=== PATIENT | female | born 1945 | race Caucasian/White ===

== ENCOUNTER 2019-10-24 09:30 | Emergency (ER) | payer OTHER, MEDICAID ==
[~2019-10-24] VITALS: Ht 160 cm; Wt 70.8 kg
[2019-10-24 09:51] VITALS: BP 139/66
[2019-10-24] MEDS ORDERED: BACITRACIN OINT 500 UNITS/GM PKT TP ONE (11:27)
--- NOTE | 2019-10-24 11:40 | NUR ---
74 Y/O FEMALE BIB CAREGIVER FROM [facility] FOR C/O ENLARGED TOE. PT HAS INTELLECTUAL DISABILITY. CAREGIVER DENIES ANY INJURY TO TOE. SKIN IN TACT. LARGE BLISTER NOTED ON TOE. SKIN INTACT. REDNESS AND SWELLING NOTED AROUND BLISTER. PT C/O PAIN UPON PALPATION.
[2019-10-24 11:43] VITALS: BP 139/66
== END 2019-10-24 11:42 | disposition home or self-care (01) ==
LOC: MED 09:30
DX: L03.032 Cellulitis of left toe (principal)
CPT/HCPCS: 73630; 99283

== ENCOUNTER 2022-05-14 13:50 | Inpatient (IN) | payer OTHER, MEDICAID ==
[~2022-05-14] VITALS: Ht 172.7 cm; Wt 90.7 kg
[2022-05-14 13:53] VITALS: BP 155/82
[2022-05-14] MEDS ORDERED: NACL 0.9% 1,000 ML IV ONE (14:15)
[2022-05-14] MEDS ORDERED: ACETAMINOPHEN EXTRA STRENGTH 500 MG TAB PO ONE (14:15)
--- NOTE | 2022-05-14 14:25 | NUR ---
77F BIBA from board and care with c/o flu like symptoms for a few days. Pt presents tachycardic, tachypneic with fever of 102 upon triage. Pt unable to verbalize needs, productive cough noted upon assessment, cooling measures implemented. Pt changed into gown and placed on bedside monitor, bed set at lowest position, side rails x2.
[2022-05-14 14:28] LABS: BASOPHILS # (AUTO) 0.1 K/uL (0.00-0.22); BASOPHILS % (AUTO) 1.2 % (0.0-2.0); EOSINOPHILS # (AUTO) 0.1 K/uL (0-0.4); EOSINOPHILS % (AUTO) 1.4 % (0.0-4.0); HEMATOCRIT 31.9 % (36-48); HEMOGLOBIN 10.6 g/dL (12.0-16.0); LYMPHOCYTES % (AUTO) 19.4 % (20.5-51.1); MEAN CORPUSCULAR HEMOGLOBIN 30 pg (27-31); MEAN CORPUSCULAR HGB CONC 33 g/dL (33-37); MONOCYTES # (AUTO) 0.7 K/uL (0.8-1.0); NEUTROPHILS # (AUTO) 3.4 K/uL (1.8-7.7); PLATELET COUNT (AUTO) 274 K/uL (140-450); RED BLOOD CELL COUNT(AUTO) 3.58 MIL/uL (4.20-5.40); RED CELL DISTRIBUTION WIDTH 15.5 % (11.6-13.7); WHITE BLOOD COUNT (AUTO) 5.3 K/uL (4.8-10.8)
[2022-05-14] MEDS ORDERED: ACETAMINOPHEN 650 MG SUPP RC ONE (14:35)
--- NOTE | 2022-05-14 14:36 | NUR ---
SWABS COLLECTED AND HANDED TO LIVING SUPERVISOR.
[2022-05-14 14:57] LABS: ALBUMIN 3.2 g/dL (3.4-5.0); ANION GAP 11.7 (8-16); ASPARTATE AMINOTRANSFERASE 27 U/L (15-37); CARBON DIOXIDE 28.9 mmol/L (21-32); CHLORIDE 100 mmol/L (98-107); CREATININE 0.8 mg/dL (0.6-1.3); GLUCOSE 88 mg/dL (74-106); POTASSIUM 4.6 mmol/L (3.5-5.1); SODIUM SERUM 136 mmol/L (136-145); TOTAL BILIRUBIN 0.2 mg/dL (0.0-1.0); UREA NITROGEN, BLOOD 20 mg/dL (7-18)
[2022-05-14 15:35] LABS: APPEARANCE,URINE CLEAR (CLEAR); BILIRUBIN,URINE NEGATIVE (NEGATIVE); BLOOD, URINE 1+ (NEGATIVE); COLOR,URINE YELLOW (YELLOW); LEUKOCYTE ESTERASE ,URINE 2+ (NEGATIVE); NITRITE, URINE POSITIVE (NEGATIVE); PH,URINE 6.5 (5.0-9.0); UGLUCOSE NEGATIVE (NEGATIVE)
[2022-05-14 15:59] LABS: OTHER CASTS, URINE None Seen /LPF (None Seen)
[2022-05-14] MEDS ORDERED: cefTRIAXone 1,000 MG VIAL ONE (16:18)
[2022-05-14] MEDS ORDERED: AMLO5TAB PO (17:06)
[2022-05-14] MEDS ORDERED: DOCU50LI8 PO (17:06)
[2022-05-14] MEDS ORDERED: LISI-487 PO (17:06)
[2022-05-14] MEDS ORDERED: HALO2TAB PO (17:06)
[2022-05-14] MEDS ORDERED: MULT-2247 PO (17:06)
[2022-05-14] MEDS ORDERED: MIRABULK PO (17:06)
[2022-05-14] MEDS ORDERED: METF-346 PO (17:06)
[2022-05-14] MEDS ORDERED: METO25TE2 PO (17:06)
[2022-05-14] MEDS ORDERED: DIPH25TA53 PO (17:06)
[2022-05-14] MEDS ORDERED: MONT10TA35 PO (17:06)
[2022-05-14] MEDS ORDERED: BUDE1AER2 IH (17:06)
[2022-05-14] MEDS ORDERED: LEVO0.155 PO (17:06)
[2022-05-14] MEDS ORDERED: DONE10TA10 PO (17:06)
[2022-05-14] MEDS ORDERED: SIMV40TA1 PO (17:06)
[2022-05-14] MEDS ORDERED: OMEP20EC11 PO (17:06)
[2022-05-14] MEDS ORDERED: FERR325E14 PO (17:06)
[2022-05-14] MEDS ORDERED: [UNRECOGNIZED DRUG - CODE] RC (17:06)
[2022-05-14] MEDS ORDERED: CALC-1646 PO (17:06)
[2022-05-14] MEDS ORDERED: [UNRECOGNIZED DRUG - CODE] PO (17:06)
--- NOTE | 2022-05-14 17:40 | NUR ---
Dr. Miles at bedside evaluating pt.
[2022-05-14] MEDS: DEXT 5% / NACL 0.45% 1,000 ML IV SCH (18:07)
--- NOTE | 2022-05-14 18:28 | NUR ---
Patient will be admitted to care of Dr. Murillo. Admited to Med/Surg. Will go to room 117. Belongings list completed. Report to JORDAN Leone.
[2022-05-14 19:30] VITALS: BP 141/66
--- NOTE | 2022-05-14 20:30 | NUR ---
RECEIVED REPORT FROM DAY SHIFT NURSE JUNIOR FOR CONTINUITY OF CARE. PATIENT IS A&O X0, NON-VERBAL. PATIENT IS ON NC 2L, BREATHING IS NORMAL WITH SYMMETRICAL RISE AND FALL OF CHEST. IV IS A L HAND 20G; RUNNING D5 1/2 NS 100. PATIENT'S EYES ARE CLOSED AND PATIENT IS NOT RESPONDING TO ANY OF THE QUESTIONS BEING ASKED. PATIENT IS LYING SEMI-FOWLERS POSITION. PATIENT WAS SOILED WITH COPIOUS AMOUNT OF STOOL IN DIAPER. PATIENT WAS CLEANED AND BEDDING WAS CHANGED WITH ASSISTANCE FROM ZAIRE JUAREZ. CHUCKS DIAPER WAS PLACED ON PATIENT. PATIENT TOLERATED CHANGE WELL. PATIENT WAS UNABLE TO ANSWER ANY QUESTIONS FOR ADMISSION. WILL CONTINUE TO OBSERVE PATIENT.
[2022-05-14] MEDS ORDERED: LORazepam 2 MG/ML VIAL IVP PRN (23:05)
[2022-05-14] MEDS ORDERED: AZITHROMYCIN 500 MG in DEXTROSE 5% 250 ML IV SCH (23:05)
[2022-05-14] MEDS ORDERED: ONDANSETRON 4 MG/2 ML VIAL IVP PRN (23:05)
[2022-05-14] MEDS ORDERED: POLYETHYLENE GLYCOL 17 GM/PKT PO PRN (23:05)
[2022-05-15] MEDS ORDERED: AZITHROMYCIN 500 MG INJ VIAL IV ONE (01:23)
[2022-05-15] MEDS: DEXT 5% / NACL 0.45% 1,000 ML IV SCH ×3 (03:10→23:10)
[2022-05-15 04:00] VITALS: BP 117/59
[2022-05-15] MEDS: LEVOTHYROXINE 0.075 MG TAB PO SCH (06:03)
[2022-05-15 06:48] LABS: ANION GAP 10.1 (8-16); CARBON DIOXIDE 29.9 mmol/L (21-32); CHLORIDE 103 mmol/L (98-107); CREATININE 0.7 mg/dL (0.6-1.3); GLUCOSE 123 mg/dL (74-106); SODIUM SERUM 139 mmol/L (136-145); UREA NITROGEN, BLOOD 13 mg/dL (7-18)
[2022-05-15 07:20] LABS: BASOPHILS # (AUTO) 0.1 K/uL (0.00-0.22); BASOPHILS % (AUTO) 1.3 % (0.0-2.0); EOSINOPHILS # (AUTO) 0.1 K/uL (0-0.4); EOSINOPHILS % (AUTO) 1.5 % (0.0-4.0); HEMATOCRIT 30.9 % (36-48); HEMOGLOBIN 10.2 g/dL (12.0-16.0); LYMPHOCYTES # (AUTO) 1.3 K/uL (2.5-16.5); LYMPHOCYTES % (AUTO) 31.3 % (20.5-51.1); MEAN CORPUSCULAR HEMOGLOBIN 30 pg (27-31); MEAN CORPUSCULAR HGB CONC 33 g/dL (33-37); MEAN CORPUSCULAR VOLUME 90.3 fL (80-94); MONOCYTES # (AUTO) 0.9 K/uL (0.8-1.0); MONOCYTES % (AUTO) 21.5 % (1.7-9.3); NEUTROPHILS # (AUTO) 1.9 K/uL (1.8-7.7); NEUTROPHILS % (AUTO) 44.4 % (42.2-75.2); PLATELET COUNT (AUTO) 233 K/uL (140-450); RED BLOOD CELL COUNT(AUTO) 3.42 MIL/uL (4.20-5.40); RED CELL DISTRIBUTION WIDTH 15.3 % (11.6-13.7); WHITE BLOOD COUNT (AUTO) 4.2 K/uL (4.8-10.8)
--- NOTE | 2022-05-15 07:25 | NUR ---
RECEIVED REPORT FROM NIGHT NURSE ANN FOR CONTINUITY OF CARE. INITIAL ASSESSMENT DONE. IVF INFUSING WELL. CALL LIGHT KEPT WITHIN REACH. WILL CONTINUE TO MONITOR.
--- NOTE | 2022-05-15 07:41 | NUR ---
ENDORSED TO DAY SHIFT NURSE JONTAHAN FOR CONTINUITY OF CARE. PATIENT IS STABLE.
[2022-05-15 08:00] VITALS: BP 117/55
[2022-05-15] MEDS: ALBUTEROL 0.083% 2.5 MG/3 ML NEBU INH SCH ×3 (08:11→18:57)
[2022-05-15] MEDS: IPRATROPIUM 0.02% 0.5 MG/2.5 ML NEBU INH SCH ×3 (08:11→18:58)
[2022-05-15] MEDS: BUDESONIDE 0.25 MG/2 ML NEBU INH SCH ×2 (08:26→18:58)
--- NOTE | 2022-05-15 08:47 | NUR ---
DIET UPGRADE TO CONSISTENT CARBOHYDRATE.
[2022-05-15] MEDS ORDERED: NON-FORMULARY ITEM (Multivit,Tx,Iron/Calcm/FA/Mins (Thera-M Caplet) 1 TAB) PO SCH (09:00)
[2022-05-15] MEDS ORDERED: CHOLECALCIFEROL PO SCH (09:00)
[2022-05-15] MEDS ORDERED: NON-FORMULARY ITEM (Omeprazole* (Prilosec*) 20 MG) PO SCH (09:00)
[2022-05-15] MEDS ORDERED: HALOPERIDOL 2 MG PO SCH (09:00)
[2022-05-15] MEDS ORDERED: NON-FORMULARY ITEM (Budesonide/Formoterol Fumarate* (Symbicort 80-4.5 Mcg Inhaler*) 2 PUFF IH SCH (09:00)
--- NOTE | 2022-05-15 09:11 | NUR ---
PATIENT HAS BEEN SCREENED AND CATEGORIZED MODERATE NUTRITION RISK. PATIENT WILL BE SEEN WITHIN 3-5 DAYS OF ADMISSION. REVIEWED BY LAUREL ACEVES RD
[2022-05-15] MEDS: FERROUS SULFATE 325 MG TABEC PO SCH ×2 (09:49→20:29)
[2022-05-15] MEDS: lisinopriL 20 MG TAB PO SCH ×2 (09:49→20:33)
[2022-05-15] MEDS: SIMVASTATIN 40 MG TAB PO SCH (09:49)
[2022-05-15] MEDS: MULTIVITAMIN/MINERALS 1 TAB PO SCH (09:49)
--- NOTE | 2022-05-15 09:49 | NUR ---
SCHEDULED MEDICATIONS WAS GIVEN. TOLERATING WELL.
[2022-05-15] MEDS: CALCIUM CARB/VIT-D 500 MG/200 IU 1 TAB PO SCH ×2 (09:50→20:32)
[2022-05-15] MEDS: VITAMIN D 400 IU TAB PO SCH (09:51)
[2022-05-15] MEDS: METOPROLOL SUCCINATE 50 MG TABER PO SCH ×2 (09:51→20:33)
[2022-05-15] MEDS: DONEPEZIL 10 MG TAB PO SCH (09:52)
[2022-05-15] MEDS: PANTOPRAZOLE 40 MG TABEC PO SCH (09:52)
[2022-05-15] MEDS: HALOPERIDOL 1 MG TAB PO SCH ×2 (09:52→20:30)
[2022-05-15] MEDS: metFORMIN 500 MG TAB PO SCH (09:54)
[2022-05-15] MEDS: amLODIPine 5 MG TAB PO SCH (10:04)
[2022-05-15] MEDS: DOCUSATE 100 MG/10 ML UDC PO SCH ×2 (10:06→20:28)
[2022-05-15] MEDS: DEXAMETHASONE 10 MG/ML VIAL IVP SCH (10:24)
[2022-05-15] MEDS ORDERED: remdesivir COMMUNICATION ORDER 1 EA MISC MC PRN (13:15)
[2022-05-15] MEDS ORDERED: remdesivir CLINICAL MONITORING 1 EA MISC MC PRN (13:25)
--- NOTE | 2022-05-15 13:49 | NUR ---
DC PLANNING PER NOTES PT IS REPORTED TO BE NONVERBAL, THEREFORE, OSIEL OUTREACHED TO [facility] TO GATHER COLLATERAL INFO. 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 KAILASH REPORTS [facility] ARE DECISIONS MAKERS FOR PT. PT IS REPORTED TO BE FOLLOWED BY DR. ANKUR ARRIAGA AT [facility] AND IS REPORTED TO BE COMPLIANT WITH CARE. KAILASH REPORTS PT HAS HX OF DEMENTIA AND PSYCHOSIS AND IS REPORTED TO MEET WITH PSYCHIATRIST 1X MONTHLY. KAILASH REPORTS PT IS TOTAL CARE AT [facility] AND CAN COMMUNICATE SIMPLE NEEDS. KAILASH REPORTS PT HAS NO FAMILY INVOLVEMENT. DC PLAN IS FOR PT TO RETURN TO [facility] WHEN MEDICALLY STABLE. KAILASH REPORTS [facility] DOES PROVIDE TRANSPORTATION HOWEVER, TRANSPORTATION NEEDS MUST BE COMMUNICATED EARLY POSSIBLE. Addendum: 05/15/22 at 1351 by Steffany PLUNKETT Amended: Links added.
[2022-05-15] MEDS ORDERED: REMDESIVIR. 200 MG in NACL 0.9% 100 ML IV SCH (15:00)
[2022-05-15 16:00] VITALS: BP 126/60
--- NOTE | 2022-05-15 19:25 | NUR ---
BEDSIDE REPORT GIVEN TO ANN FOR CONTINUITY OF CARE. REMAINS STABLE.
--- NOTE | 2022-05-15 19:30 | NUR ---
RECEIVED REPORT FROM DAY SHIFT NURSE JONATHAN FOR CONTINUITY OF CARE. PATIENT IS A&O X0-1. PATIENT IS ON NC 2L, BREATHING IS NORMAL WITH SYMMETRICAL RISE AND FALL OF CHEST. IV IS A L HAND 20G; AND A 24G R HAND, RUNNING D5 1/2 NS 100. PATIENT IS AWAKE IN BED, LYING HIGH-FOWLERS POSITION. WILL CONTINUE TO OBSERVE PATIENT.
[2022-05-15 20:00] VITALS: BP 124/62
[2022-05-15] MEDS ORDERED: CRUSHER, PILL MC ONE (20:26)
[2022-05-15] MEDS: MONTELUKAST SODIUM 10 MG TAB PO SCH (20:32)
[2022-05-16] MEDS: DEXT 5% / NACL 0.45% 1,000 ML IV SCH (01:29)
[2022-05-16] MEDS: ALBUTEROL 0.083% 2.5 MG/3 ML NEBU INH SCH ×4 (01:36→19:44)
[2022-05-16] MEDS: IPRATROPIUM 0.02% 0.5 MG/2.5 ML NEBU INH SCH ×4 (01:36→19:45)
[2022-05-16 04:00] VITALS: BP 137/48
[2022-05-16 06:44] LABS: BASOPHILS % (AUTO) 0.9 % (0.0-2.0); EOSINOPHILS % (AUTO) 0.6 % (0.0-4.0); HEMOGLOBIN 9.9 g/dL (12.0-16.0); LYMPHOCYTES # (AUTO) 1.3 K/uL (2.5-16.5); LYMPHOCYTES % (AUTO) 34.1 % (20.5-51.1); MEAN CORPUSCULAR HEMOGLOBIN 30 pg (27-31); MEAN CORPUSCULAR HGB CONC 33 g/dL (33-37); MEAN CORPUSCULAR VOLUME 89.3 fL (80-94); MONOCYTES # (AUTO) 0.5 K/uL (0.8-1.0); MONOCYTES % (AUTO) 14.4 % (1.7-9.3); NEUTROPHILS # (AUTO) 1.9 K/uL (1.8-7.7); PLATELET COUNT (AUTO) 217 K/uL (140-450); RED BLOOD CELL COUNT(AUTO) 3.36 MIL/uL (4.20-5.40); RED CELL DISTRIBUTION WIDTH 15.6 % (11.6-13.7); WHITE BLOOD COUNT (AUTO) 3.7 K/uL (4.8-10.8)
[2022-05-16] MEDS: LEVOTHYROXINE 0.075 MG TAB PO SCH (06:51)
--- NOTE | 2022-05-16 06:52 | NUR ---
PATIENT HAD ONE VOID DURING THE NIGHT WITH NO BOWEL MOVEMENT. PATIENT WAS CLEANED, AND NEW CHUCKS DIAPER WAS PLACED WITH ASSISTANCE FROM JORDAN GTZ. PATIENT HAS BEEN ACTIVE THROUGHOUT THE NIGHT PULLING OFF HER PULSEOX OFF HER FINGER. IV IS STILL RUNNING. WILL ENDORSE CARE OF PATIENT TO DAY SHIFT NURSE.
[2022-05-16 06:54] LABS: ALBUMIN 2.8 g/dL (3.4-5.0); ANION GAP 12.5 (8-16); ASPARTATE AMINOTRANSFERASE 20 U/L (15-37); CARBON DIOXIDE 27.7 mmol/L (21-32); CHLORIDE 103 mmol/L (98-107); CREATININE 0.6 mg/dL (0.6-1.3); GLUCOSE 116 mg/dL (74-106); POTASSIUM 4.2 mmol/L (3.5-5.1); SODIUM SERUM 139 mmol/L (136-145); TOTAL BILIRUBIN 0.1 mg/dL (0.0-1.0); UREA NITROGEN, BLOOD 13 mg/dL (7-18)
--- NOTE | 2022-05-16 07:41 | NUR ---
ENDORSED TO DAY SHIFT NURSE GUILLERMO FOR CONTINUITY OF CARE. PATIENT IS STABLE.
--- NOTE | 2022-05-16 07:42 | NUR ---
RECEIVED REPORT FROM ORGANIZATIONAL EFFECTIVENESS CONSULTANT NURSE ANN FOR CONTINUITY OF CARE. PT AWAKE IN BED. RESPIRATIONS EVEN AND UNLABORED ON 2L NC. PT POSITIVE FOR COVID. CONTACT PRECAUTIONS IN PLACE. INITIAL ASSESSMENT DONE. POC DISCUSSED. CALL LIGHT WITHIN REACH. SAFETY PRECAUTIONS IN PLACE.
[2022-05-16] MEDS: BUDESONIDE 0.25 MG/2 ML NEBU INH SCH ×2 (07:52→19:46)
[2022-05-16 08:00] VITALS: BP 135/70
[2022-05-16] MEDS: DEXAMETHASONE 10 MG/ML VIAL IVP SCH (09:00)
[2022-05-16] MEDS: PANTOPRAZOLE 40 MG TABEC PO SCH (09:22)
[2022-05-16] MEDS: MULTIVITAMIN/MINERALS 1 TAB PO SCH (09:22)
[2022-05-16] MEDS: metFORMIN 500 MG TAB PO SCH (09:22)
[2022-05-16] MEDS: HALOPERIDOL 1 MG TAB PO SCH ×2 (09:23→21:00)
[2022-05-16] MEDS: VITAMIN D 400 IU TAB PO SCH (09:23)
[2022-05-16] MEDS: SIMVASTATIN 40 MG TAB PO SCH (09:23)
[2022-05-16] MEDS: CALCIUM CARB/VIT-D 500 MG/200 IU 1 TAB PO SCH ×2 (09:23→21:00)
[2022-05-16] MEDS: FERROUS SULFATE 325 MG TABEC PO SCH ×2 (09:24→21:00)
[2022-05-16] MEDS: DONEPEZIL 10 MG TAB PO SCH (09:24)
[2022-05-16] MEDS: DOCUSATE 100 MG/10 ML UDC PO SCH ×2 (09:25→21:00)
[2022-05-16] MEDS: bisacodyL 10 MG SUPP RC SCH (09:26)
[2022-05-16] MEDS: METOPROLOL SUCCINATE 50 MG TABER PO SCH ×2 (09:26→21:00)
[2022-05-16] MEDS: amLODIPine 5 MG TAB PO SCH (09:27)
[2022-05-16] MEDS: lisinopriL 20 MG TAB PO SCH ×2 (09:27→21:00)
--- NOTE | 2022-05-16 09:43 | NUR ---
ADMINISTERED DUE MEDS. PT TOLERATED WELL.
[2022-05-16 09:52] LABS: FREE T4 (FREE THYROXINE) 1.43 ng/dL (0.76-1.46); THYROID STIMULATING HORMONE 0.35 uIU/mL (0.34-3.74)
--- NOTE | 2022-05-16 11:20 | NUR ---
PT WAS SATING 97% ON 2LNC. PT VITALS WERE IN NORMAL RANGE. O2 WAS TAKEN OFF PT. PT WAS SATING 95% ON ROOM AIR. PT WAS IN NO SIGNS OF RESP DISTRESS. RN WAS NOTIFIED. WILL CONT TO MONITOR.
--- NOTE | 2022-05-16 11:48 | NUR ---
RT AT BEDSIDE AND PLACED PT TO RA SATTING AT 96%. PT CLOSELY MONITORED.
--- NOTE | 2022-05-16 11:58 | NUR ---
PT. WITH LOW NYASIA SCALE AT MODERATE TO HIGH RISK, CONTINUE TO FOLLOW PRESSURE INJURY PREVENTION INTERVENTIONS. -POSITIONING: TURN AND REPOSITION PATIENT Q 2H OR SOONER USE PILLOWS TO KEEP BONY PROMINENCES FROM DIRECT CONTACT WITH SURFACES USE REPOSITIONING WEDGES TO PROVIDE 30-DEGREE ANGLE FOR SIDE LYING POSITIONS OFFLOADING OR FOAM DRESSING TO ALL TUBING TO PREVENT MEDICAL DEVICES RELATED PRESSURE INJURY -RE-EVALUATING AND MANAGING INCONTINENCE MONITOR SKIN CONDITION DURING POSITION CHANGE DO NOT MASSAGE REDNESS, BONY PROMINENCES FREQUENT LEWIS-CARE AND PROVIDE BARRIER CREAMS PRN IF SOILING MOISTURE CONTROL BY OFFER BED PHAM/URINAL /ABSORBENT PAD TO WICK AND HOLD MOISTURE KEEP SKIN DRY AND PROTECT FROM FRICTION -MANAGE FRICTION/SHEAR/MOBILITY KEEP HOB AT THE LOWEST LEVEL OF ELEVATION NO MORE THAN 30 DEGREE UNLESS OTHERWISE CONTRAINDICATED USE LIFT SHEET OR TRANSFER DEVICE TO MOVE PATIENT AND PREVENT LATERAL SHEER. PROTECT HEELS, ELBOWS BONY PROMINENCES WITH SKIN BERRIES OR FOAM DRESSING IF EXPOSED TO FRICTION OFFLOAD BILATERAL HEELS BY PLACING PILLOWS UNDER CALVES AT ALL TIMES, UNLESS OTHERWISE CONTRAINDICATED -PRESSURE REDISTRIBUTION SURFACE THERAPY ELVIN ISOFLEX MATTRESS -NUTRITION: PLEASE FOLLOW RD RECOMMENDATIONS AND OFFER NUTRITION SUPPLEMENTS IF ORDERED. PLEASE CONTACT WOUND CARE NURSE FOR ANY QUESTION AND CHANGE OF WOUND CONDITION.
--- NOTE | 2022-05-16 13:51 | NUR ---
DC PLANNING: PATIENT WAS ADMITTED FROM [facility] WITH A DX OF COVID AND UTI. PATIENT HAS A HX OF CEREBRAL PALSY PSYCHOSIS GERD ,ASTHMA HTN, DM AND HLD. RAPID COVID TEST POSITIVE ,ON O2 2L/NC SATING 97% . ADMINISTERED IVF, IV ABX ROCEPHIN AND REMDESIVIR. CONSULTED WITH PULMO AND ID. DC PLAN TO RETURN TO [facility] VS [facility]. CM TO FOLLOW Addendum: 05/16/22 at 1403 by Albertina Diop RN DC PLANNING: RECEIVED A CALL FROM JUSTIN MCKEON SPOKE WITH JOY [facility]ENG PT'S PCP WISAM ARRIAGA CONTACTED HER AND REQUESTING THE CLINICALS TO BE FAXED TO THEM. FAXED ALL PAPERWORK PER JOY WILL ACCEPT PATIENT WHEN STABLE FOR DISCHARGE. PHONE NUMBER [phone]. CM TO FOLLOW
[2022-05-16] MEDS: REMDESIVIR. 100 MG in NACL 0.9% 100 ML IV SCH (15:51)
[2022-05-16 16:00] VITALS: BP 135/67
--- NOTE | 2022-05-16 16:45 | NUR ---
ASSISTED SUPPLEMENTAL MANAGER IN DOING AFTERNOON CARE. PT HAD BM. PT TOLERATED WELL. NO DISTRESS NOTED. SAFETY PRECAUTIONS IN PLACE. PT REMAINED CLEAN AND DRY.
--- NOTE | 2022-05-16 19:26 | NUR ---
ENDORSED PT TO DREDGE OPERATOR NURSE ADRIAN FOR CONTINUITY OF CARE. ALL NEEDS MET THROUGHOUT SHIFT. PT IS IN STABLE CONDITION.
[2022-05-16 20:00] VITALS: BP 135/65
[2022-05-16] MEDS: MONTELUKAST SODIUM 10 MG TAB PO SCH (21:00)
--- NOTE | 2022-05-16 21:00 | NUR ---
REPORT RECEIVED FROM DAY SHIFT NURSE @ 1930. MAINTAIN DROPLET PRECAUTIONS PER COVID PROTOCOL/NEGATIVE PRESSURE ROOM., WEANED FROM O2 SATING 95-98%. CONTINUE TO ASSESS THRU OUT SHIFT. VERY DELIGHTFUL LIGHT HEARTED WITH PLAYFUL SENSE OF HUMOR. ALTHOUGH RECEIVED REPORT PT WAS NON-VERBAL, PT IS QUITE VERBAL AND UNDERSTANDABLE. TURNS WITH ASSIST OF 1 VERY WELL FROM LEFT TO RIGHT.KEEP HYDRO GUARD SLATHERED ON GROIN AND BOTTOM AFTER EACH PAD CHANGE. SKIN LOOKS GOOD AND IS INTACT. STOP FLUIDS PER MD ORDER. CONTINUE TO ENGAGE IN CONVERSATION DURING EACH VISIT TO PROVIDE SOCIAL OUTLET FROM ISOLATION STATUS. NICE SMILE AND OPENS MOUTH READILY TO ACCEPT MEDS IN APPLESAUCE. CONTINUE TO MONITOR AND ASSIST.
--- NOTE | 2022-05-17 00:30 | NUR ---
PT RESTING LIGHTLY AND WATCHING TELEVISION IN INTERVALS. NOTED O2 REMAINS OFF. SATS 98 RA.
[2022-05-17] MEDS: ALBUTEROL 0.083% 2.5 MG/3 ML NEBU INH SCH ×4 (01:00→19:00)
[2022-05-17] MEDS: IPRATROPIUM 0.02% 0.5 MG/2.5 ML NEBU INH SCH ×4 (01:00→19:00)
[2022-05-17 06:25] LABS: BASOPHILS % (AUTO) 0.6 % (0.0-2.0); HEMATOCRIT 30.5 % (36-48); HEMOGLOBIN 10.2 g/dL (12.0-16.0); LYMPHOCYTES # (AUTO) 1.2 K/uL (2.5-16.5); LYMPHOCYTES % (AUTO) 31.5 % (20.5-51.1); MEAN CORPUSCULAR HEMOGLOBIN 29 pg (27-31); MEAN CORPUSCULAR HGB CONC 33 g/dL (33-37); MEAN CORPUSCULAR VOLUME 88.4 fL (80-94); MONOCYTES # (AUTO) 0.5 K/uL (0.8-1.0); MONOCYTES % (AUTO) 13.3 % (1.7-9.3); NEUTROPHILS # (AUTO) 2.1 K/uL (1.8-7.7); NEUTROPHILS % (AUTO) 54.6 % (42.2-75.2); PLATELET COUNT (AUTO) 232 K/uL (140-450); RED BLOOD CELL COUNT(AUTO) 3.45 MIL/uL (4.20-5.40); RED CELL DISTRIBUTION WIDTH 15.5 % (11.6-13.7); WHITE BLOOD COUNT (AUTO) 3.9 K/uL (4.8-10.8)
[2022-05-17] MEDS: LEVOTHYROXINE 0.075 MG TAB PO SCH (06:30)
--- NOTE | 2022-05-17 06:30 | NUR ---
PERSONAL HYGIENE AND POSITIONING WITH ASSIST OF PT TURNING VERY WELL SIDE TO SIDE. SKIN CLEANSED AND HYDROGEL SLATHERED LIBERALLY PT REALLY SATURATES PADS. RT ALSO AT BEDSIDE. REMAINS STABLE. NO CHANGE. AM MEDS SCHEDULED.
[2022-05-17 06:52] LABS: ANION GAP 12.2 (8-16); CARBON DIOXIDE 24.9 mmol/L (21-32); CHLORIDE 105 mmol/L (98-107); CREATININE 0.6 mg/dL (0.6-1.3); GLUCOSE 97 mg/dL (74-106); POTASSIUM 4.1 mmol/L (3.5-5.1); SODIUM SERUM 138 mmol/L (136-145); UREA NITROGEN, BLOOD 13 mg/dL (7-18)
[2022-05-17 06:59] LABS: ALBUMIN 2.9 g/dL (3.4-5.0); ANION GAP 11.6 (8-16); ASPARTATE AMINOTRANSFERASE 19 U/L (15-37); CARBON DIOXIDE 25.4 mmol/L (21-32); CHLORIDE 105 mmol/L (98-107); CREATININE 0.6 mg/dL (0.6-1.3); GLUCOSE 97 mg/dL (74-106); SODIUM SERUM 138 mmol/L (136-145); TOTAL BILIRUBIN 0.1 mg/dL (0.0-1.0); UREA NITROGEN, BLOOD 13 mg/dL (7-18)
--- NOTE | 2022-05-17 07:30 | NUR ---
REPORT TO RETURNING A.M NURSE. FOR CONTINUITY OF CARE. PT AWAKE AND STABLE. NO CHANGES. IV SALINE LOCKED. REMAINS ON ROOM AIR. RESPIRATORY WILL REASSESS IN 1 HOUR. RELINQUISHED CARE OF PT AT THIS TIME.
--- NOTE | 2022-05-17 07:30 | NUR ---
RECEIVED REPORT FROM TRADER FIXED INCOME NURSE ADRIAN FOR CONTINUITY OF CARE. PT AWAKE IN BED. RESPIRATIONS EVEN AND UNLABORED ON RA, SATTING AT 98%. PT COUGHING INTERMITTENTLY. RT AT BEDSIDE FOR BREATHING TREATMENT. INITIAL ASSESSMENT DONE. POC DISCUSSED WITH PT AND RN BHAVNA GOMEZ. CALL LIGHT WITHIN REACH. SAFETY AND CONTACT PRECAUTIONS IN PLACE. Addendum: 05/17/22 at 1348 by Yimi Wisdom LVN IV SITES NOT FLUSHING. PT COMPLAINING OF PAIN WHEN TRYING TO FLUSH. REMOVED IV CATHETERS INTACT. WILL ATTEMPT TO INSERT A NEW IV LINE.
[2022-05-17] MEDS: BUDESONIDE 0.25 MG/2 ML NEBU INH SCH ×2 (07:44→19:30)
[2022-05-17 08:00] VITALS: BP 118/52
[2022-05-17] MEDS: metFORMIN 500 MG TAB PO SCH (08:49)
[2022-05-17] MEDS: amLODIPine 5 MG TAB PO SCH (08:50)
[2022-05-17] MEDS: METOPROLOL SUCCINATE 50 MG TABER PO SCH ×2 (08:50→21:10)
[2022-05-17] MEDS: PANTOPRAZOLE 40 MG TABEC PO SCH (08:51)
[2022-05-17] MEDS: CALCIUM CARB/VIT-D 500 MG/200 IU 1 TAB PO SCH ×2 (08:51→21:10)
[2022-05-17] MEDS: HALOPERIDOL 1 MG TAB PO SCH ×2 (08:51→21:09)
[2022-05-17] MEDS: lisinopriL 20 MG TAB PO SCH ×2 (08:52→21:10)
[2022-05-17] MEDS: MULTIVITAMIN/MINERALS 1 TAB PO SCH (08:52)
[2022-05-17] MEDS: DONEPEZIL 10 MG TAB PO SCH (08:52)
[2022-05-17] MEDS: SIMVASTATIN 40 MG TAB PO SCH (08:52)
[2022-05-17] MEDS: VITAMIN D 400 IU TAB PO SCH (08:52)
[2022-05-17] MEDS: DOCUSATE 100 MG/10 ML UDC PO SCH ×2 (08:53→21:12)
[2022-05-17] MEDS: FERROUS SULFATE 325 MG TABEC PO SCH ×2 (08:55→21:09)
--- NOTE | 2022-05-17 09:15 | NUR ---
ADMINISTERED DUE MEDS. PT TOLERATED WELL.
--- NOTE | 2022-05-17 11:08 | NUR ---
ATTEMPTED TO INSERT A NEW IV LINE BUT UNSUCCESSFUL. ANOTHER NURSE ALSO ATTEMPTED TO INSERT A NEW LINE BUT ALSO UNSUCCESSFUL. INFORMED DR PELAEZ THAT PT HAS NO IV LINE AND SCHEDULED DECADRON NOT YET GIVEN. ORDERED PICC LINE.
--- NOTE | 2022-05-17 12:05 | NUR ---
ER NURSE ATTEMPTED TO INSERT IV LINE AND WAS SUCCESSFUL. IV SITE NOW RIGHT WRIST 22G. PT TOLERATED WELL.
[2022-05-17] MEDS: DEXAMETHASONE 10 MG/ML VIAL IVP SCH (12:13)
[2022-05-17] MEDS: REMDESIVIR. 100 MG in NACL 0.9% 100 ML IV SCH (15:30)
[2022-05-17 16:00] VITALS: BP 138/75
--- NOTE | 2022-05-17 16:30 | NUR ---
PT IN BED, SLEEPING. NO DISTRESS NOTED. SATTING AT 97% ON RA. SAFETY PRECAUTIONS IN PLACE. PT CLOSELY MONITORED.
--- NOTE | 2022-05-17 19:21 | NUR ---
ENDORSED PT TO PATIENT TRANSPORTATION DRIVER NURSE VIOLETTA FOR CONTINUITY OF CARE. ALL NEEDS MET THROUGHOUT SHIFT. PT IS STABLE.
--- NOTE | 2022-05-17 19:22 | NUR ---
RECD. RESTING IN BED, AWAKE, A/OX1. RESPIRATION EVEN AND UNLABORED. 002 SAT - 97% ON ROOM AIR. CONFUSED, REORIENTED TO HOSPITAL SETTING. IV SALINE LOCK AT THE RIGHT WRIST G22, PATENT AND INTACT. PATIENT IS INCONTINENT. SAFETY MEASURES ENFORCED. NO APPEARANCE OF PAIN NOTED, FLACC -0.
--- NOTE | 2022-05-17 19:58 | NUR ---
PT BREATH SOUNDS ARE CLEAR, PT IS SATURATING 97% ON ROOM AIR, WILL CONTINUE TO MONITOR
[2022-05-17 20:00] VITALS: BP 153/69
--- NOTE | 2022-05-17 20:00 | NUR ---
Patient's Plan of Care was discussed and reviewed with ZAIRE: VIOLETTA
[2022-05-17] MEDS: MONTELUKAST SODIUM 10 MG TAB PO SCH (21:11)
--- NOTE | 2022-05-17 21:12 | NUR ---
SCHEDULED MEDICATIONS ADMINISTERED WITH APPLE SAUCE. TOLERATED WELL.
--- NOTE | 2022-05-18 | NUR ---
DIAPER CHANGED. REPOSITIONED IN BED WITH PILLOWS.
[2022-05-18] MEDS: ALBUTEROL 0.083% 2.5 MG/3 ML NEBU INH SCH ×4 (01:48→19:20)
[2022-05-18] MEDS: IPRATROPIUM 0.02% 0.5 MG/2.5 ML NEBU INH SCH ×4 (01:48→19:21)
--- NOTE | 2022-05-18 02:00 | NUR ---
SLEEPING COMFORTABLY IN BED, RESPIRATION EVEN AND UNLABORED.
[2022-05-18] MEDS: LEVOTHYROXINE 0.075 MG TAB PO SCH (06:28)
--- NOTE | 2022-05-18 06:28 | NUR ---
ADMINISTERED SYNTHROID WITH APPLE SAUCE, TOLERATED WELL. DIAPER CHANGED, REPOSITIONED IN BED WITH PILLOWS
[2022-05-18 06:39] LABS: BASOPHILS % (AUTO) 0.3 % (0.0-2.0); HEMATOCRIT 32.5 % (36-48); HEMOGLOBIN 10.9 g/dL (12.0-16.0); LYMPHOCYTES # (AUTO) 1.2 K/uL (2.5-16.5); LYMPHOCYTES % (AUTO) 25.6 % (20.5-51.1); MEAN CORPUSCULAR HEMOGLOBIN 30 pg (27-31); MEAN CORPUSCULAR HGB CONC 34 g/dL (33-37); MONOCYTES # (AUTO) 0.6 K/uL (0.8-1.0); MONOCYTES % (AUTO) 11.6 % (1.7-9.3); NEUTROPHILS % (AUTO) 62.5 % (42.2-75.2); PLATELET COUNT (AUTO) 277 K/uL (140-450); RED BLOOD CELL COUNT(AUTO) 3.69 MIL/uL (4.20-5.40); RED CELL DISTRIBUTION WIDTH 15.8 % (11.6-13.7); WHITE BLOOD COUNT (AUTO) 4.8 K/uL (4.8-10.8)
[2022-05-18 07:50] LABS: ANION GAP 14.1 (8-16); ASPARTATE AMINOTRANSFERASE 26 U/L (15-37); CARBON DIOXIDE 25.9 mmol/L (21-32); CHLORIDE 102 mmol/L (98-107); CREATININE 0.6 mg/dL (0.6-1.3); GLUCOSE 141 mg/dL (74-106); SODIUM SERUM 138 mmol/L (136-145); TOTAL BILIRUBIN 0.2 mg/dL (0.0-1.0); UREA NITROGEN, BLOOD 19 mg/dL (7-18)
[2022-05-18 08:00] VITALS: BP 151/98
[2022-05-18] MEDS: metFORMIN 500 MG TAB PO SCH (08:00)
[2022-05-18] MEDS: BUDESONIDE 0.25 MG/2 ML NEBU INH SCH ×2 (08:28→19:26)
--- NOTE | 2022-05-18 08:30 | NUR ---
ASSESSMENT COMPLETED PLAN OF CARE REVIEWED PT WITH PRODUCTIVE COUGH AND INCREASINGLY ANXIOUS WILL MEDICATE WITH ATIVAN ORDERED WILL CONTINUE TO MONITOR AND ASSESS
[2022-05-18] MEDS: DEXAMETHASONE 10 MG/ML VIAL IVP SCH (09:41)
[2022-05-18] MEDS: DONEPEZIL 10 MG TAB PO SCH (09:41)
[2022-05-18] MEDS: VITAMIN D 400 IU TAB PO SCH (09:41)
[2022-05-18] MEDS: MULTIVITAMIN/MINERALS 1 TAB PO SCH (09:42)
[2022-05-18] MEDS: amLODIPine 5 MG TAB PO SCH (09:42)
[2022-05-18] MEDS: PANTOPRAZOLE 40 MG TABEC PO SCH (09:42)
[2022-05-18] MEDS: DOCUSATE 100 MG/10 ML UDC PO SCH ×2 (09:42→21:07)
[2022-05-18] MEDS: lisinopriL 20 MG TAB PO SCH ×2 (09:42→21:09)
[2022-05-18] MEDS: FERROUS SULFATE 325 MG TABEC PO SCH ×2 (09:42→21:08)
[2022-05-18] MEDS: METOPROLOL SUCCINATE 50 MG TABER PO SCH ×2 (09:42→21:11)
[2022-05-18] MEDS: HALOPERIDOL 1 MG TAB PO SCH ×2 (09:42→21:08)
[2022-05-18] MEDS: CALCIUM CARB/VIT-D 500 MG/200 IU 1 TAB PO SCH ×2 (09:42→21:08)
[2022-05-18] MEDS: SIMVASTATIN 40 MG TAB PO SCH (09:43)
[2022-05-18] MEDS: bisacodyL 10 MG SUPP RC SCH (09:43)
--- NOTE | 2022-05-18 15:00 | NUR ---
UPON ROUNDS PT CONFUSED WITH IV PULLED OUT, REORIENTED TO REALITY RESTARTED IV 24 GAUGE AT RIGHT HAND ONE ATTMENT PAND PT TOLERATED WELL PAPPOSE BOARD APPLIED TO PREVENT CONTRACTURE AND TO PREVENT PT PULLING OUT IV GOOD BLOOD RETURN NOTED AND PT RECEIVING REMDESEVIR ORDERED AT THIS TIME WILL CONTINUE TO MONITOR AND ASSESS
[2022-05-18] MEDS: REMDESIVIR. 100 MG in NACL 0.9% 100 ML IV SCH (15:33)
[2022-05-18 16:00] VITALS: BP 116/62
[2022-05-18] MEDS: MONTELUKAST SODIUM 10 MG TAB PO SCH (21:09)
[2022-05-19 00:07] VITALS: BP 118/76
[2022-05-19] MEDS: ALBUTEROL 0.083% 2.5 MG/3 ML NEBU INH SCH ×4 (00:09→19:30)
[2022-05-19] MEDS: IPRATROPIUM 0.02% 0.5 MG/2.5 ML NEBU INH SCH ×4 (00:09→19:30)
--- NOTE | 2022-05-19 02:18 | NUR ---
PATIENT STABLE SLEEPING AT THIS TIME VITALS SIGNS IN NORMAL LIMITS NO SIGN OF PAIN AT THIS TIME PATIENT REPOSITION AND DIAPER CHANGE
--- NOTE | 2022-05-19 04:30 | NUR ---
PATIENT STABLE VITALS SIGNS IN NORMAL LIMITS REPOSITION TO THE LEFT SIDE CHANGE THE DIAPER SR 89 ON MONITOR
[2022-05-19] MEDS: LEVOTHYROXINE 0.075 MG TAB PO SCH (05:18)
--- NOTE | 2022-05-19 06:56 | NUR ---
PATIENT STABLE NOT COMPLAINING OF PAIN VITALS SIGNS IN NORMAL LIMITS
[2022-05-19 08:00] VITALS: BP 152/73
[2022-05-19] MEDS: metFORMIN 500 MG TAB PO SCH (08:00)
--- NOTE | 2022-05-19 08:30 | NUR ---
ASSESSMENT COMPLETED PLAN OF CARE REVIEWED WILL CONTINUE TO MONITOR AND ASSESS TURNED AND REPOSITIONED
[2022-05-19] MEDS: BUDESONIDE 0.25 MG/2 ML NEBU INH SCH ×2 (08:52→19:38)
[2022-05-19 09:47] LABS: BASOPHILS % (AUTO) 0.3 % (0.0-2.0); EOSINOPHILS % (AUTO) 0.2 % (0.0-4.0); HEMATOCRIT 34.1 % (36-48); HEMOGLOBIN 11.2 g/dL (12.0-16.0); LYMPHOCYTES # (AUTO) 2.9 K/uL (2.5-16.5); LYMPHOCYTES % (AUTO) 32.4 % (20.5-51.1); MEAN CORPUSCULAR HEMOGLOBIN 29 pg (27-31); MEAN CORPUSCULAR HGB CONC 33 g/dL (33-37); MEAN CORPUSCULAR VOLUME 88.4 fL (80-94); MONOCYTES % (AUTO) 11.1 % (1.7-9.3); PLATELET COUNT (AUTO) 299 K/uL (140-450); RED BLOOD CELL COUNT(AUTO) 3.85 MIL/uL (4.20-5.40); RED CELL DISTRIBUTION WIDTH 15.1 % (11.6-13.7)
[2022-05-19] MEDS: VITAMIN D 400 IU TAB PO SCH (09:48)
[2022-05-19] MEDS: FERROUS SULFATE 325 MG TABEC PO SCH ×2 (09:48→21:00)
[2022-05-19] MEDS: DEXAMETHASONE 10 MG/ML VIAL IVP SCH (09:48)
[2022-05-19] MEDS: DONEPEZIL 10 MG TAB PO SCH (09:48)
[2022-05-19] MEDS: DOCUSATE 100 MG/10 ML UDC PO SCH ×2 (09:48→21:00)
[2022-05-19] MEDS: HALOPERIDOL 1 MG TAB PO SCH ×2 (09:48→21:00)
[2022-05-19] MEDS: lisinopriL 20 MG TAB PO SCH ×2 (09:49→21:00)
[2022-05-19] MEDS: METOPROLOL SUCCINATE 50 MG TABER PO SCH ×2 (09:49→21:00)
[2022-05-19] MEDS: amLODIPine 5 MG TAB PO SCH (09:49)
[2022-05-19] MEDS: SIMVASTATIN 40 MG TAB PO SCH (09:49)
[2022-05-19] MEDS: CALCIUM CARB/VIT-D 500 MG/200 IU 1 TAB PO SCH ×2 (09:49→21:00)
[2022-05-19] MEDS: PANTOPRAZOLE 40 MG TABEC PO SCH (09:49)
[2022-05-19] MEDS: MULTIVITAMIN/MINERALS 1 TAB PO SCH (09:49)
[2022-05-19 12:29] LABS: ANION GAP 13.8 (8-16); ASPARTATE AMINOTRANSFERASE 3 U/L (15-37); CARBON DIOXIDE 26.9 mmol/L (21-32); CHLORIDE 102 mmol/L (98-107); CREATININE 0.7 mg/dL (0.6-1.3); GLUCOSE 104 mg/dL (74-106); POTASSIUM 3.7 mmol/L (3.5-5.1); SODIUM SERUM 139 mmol/L (136-145); TOTAL BILIRUBIN 0.2 mg/dL (0.0-1.0); UREA NITROGEN, BLOOD 23 mg/dL (7-18)
[2022-05-19] MEDS: REMDESIVIR. 100 MG in NACL 0.9% 100 ML IV SCH (14:50)
--- NOTE | 2022-05-19 15:52 | NUR ---
05/19/22 RD INITIAL ASSESSMENT COMPLETED PLEASE REFER TO NUTRITION ASSESSMENT UNDER CARE ACTIVITY FOR ESTIMATED NUTRITIONAL NEEDS. 1. CONTINUE CCHO 60 GM, CARDIAC, MECHANICAL SOFT DIET TOLERATED 2. RECOMMEND GLUCERNA 1/DAY - PROVIDES 220 KCAL AND [address] DA[address]. RD PROVIDED NUTRITION EDUCATION HANDOUTS ON CARB COUNTING FOR DM 4. RD TO FOLLOW-UP 3-5 DAYS, MODERATE RISK REVIEWED BY LAUREL ACEVES RD
[2022-05-19 16:00] VITALS: BP 104/54
--- NOTE | 2022-05-19 19:16 | NUR ---
RECEIVED ENDORSEMENT FROM BRIGETTE ORTEGA, PATIENT WAS STABLE DURING SHIFT REPORT. PATIENT WAS ABLE TO RESPOND TO HER NAME WHEN CALLED. PATIENT WAS ON ROOM AIR SATURATING AT 95%. NO NOTED RESPIRATORY DISTRESS. NO NOTED S/S OF PAIN/DISCOMFORT AT THIS TIME. PATIENT IS HERE FOR COVID 19 POSITIVE AND UTI. NURSING WILL FREQUENT THE ROOM IN ANTICIPATION FOR NEEDS. CALL LIGHT WITHIN REACH AND SIDE RAILS UP X 3 FOR SAFETY AND COMFORT. [email or web address]
[2022-05-19 20:00] VITALS: BP 129/65
[2022-05-19] MEDS: MONTELUKAST SODIUM 10 MG TAB PO SCH (21:00)
[2022-05-20] MEDS: ALBUTEROL 0.083% 2.5 MG/3 ML NEBU INH SCH ×3 (00:23→14:34)
[2022-05-20] MEDS: IPRATROPIUM 0.02% 0.5 MG/2.5 ML NEBU INH SCH ×3 (00:23→14:34)
--- NOTE | 2022-05-20 00:55 | NUR ---
PATIENT NOTED ASLEEP. NO NOTED S/S OF PAIN/DISCOMFORT. NO S/S OF RESPIRATORY DISTRESS. CALL LIGHT WITHIN REACH BUT NURSING WILL FREQUENT THIS ROOM FOR ANTICIPATED NEEDS. [email or web address]
[2022-05-20 04:00] VITALS: BP 109/64
--- NOTE | 2022-05-20 05:25 | NUR ---
PATIENT WAS CHANGED AND KEPT CLEAN AND DRY. NO NOTED S/S OF PAIN/DISCOMFORT. NO S/S OF RESPIRATORY DISTRESS. CALL LIGHT WITHIN REACH BUT NURSING WILL FREQUENT THIS ROOM FOR ANTICIPATED NEEDS. [email or web address]
[2022-05-20] MEDS: LEVOTHYROXINE 0.075 MG TAB PO SCH (06:54)
--- NOTE | 2022-05-20 07:22 | NUR ---
ENDORSED PATIENT TO PITO ORTEGA (REGISTRY), PATIENT WAS STABLE DURING SHIFT REPORTS. [email or web address]
[2022-05-20 08:19] LABS: ANION GAP 11.5 (8-16); BASOPHILS # (AUTO) 0.1 K/uL (0.00-0.22); BASOPHILS % (AUTO) 0.8 % (0.0-2.0); CARBON DIOXIDE 28.5 mmol/L (21-32); CHLORIDE 104 mmol/L (98-107); CREATININE 0.7 mg/dL (0.6-1.3); EOSINOPHILS % (AUTO) 0.1 % (0.0-4.0); GLUCOSE 124 mg/dL (74-106); HEMATOCRIT 32.6 % (36-48); HEMOGLOBIN 11.2 g/dL (12.0-16.0); LYMPHOCYTES # (AUTO) 2.5 K/uL (2.5-16.5); LYMPHOCYTES % (AUTO) 22.9 % (20.5-51.1); MEAN CORPUSCULAR HEMOGLOBIN 30 pg (27-31); MEAN CORPUSCULAR HGB CONC 34 g/dL (33-37); MEAN CORPUSCULAR VOLUME 87.2 fL (80-94); MONOCYTES % (AUTO) 9.5 % (1.7-9.3); NEUTROPHILS # (AUTO) 7.3 K/uL (1.8-7.7); NEUTROPHILS % (AUTO) 66.7 % (42.2-75.2); PLATELET COUNT (AUTO) 274 K/uL (140-450); RED BLOOD CELL COUNT(AUTO) 3.74 MIL/uL (4.20-5.40); RED CELL DISTRIBUTION WIDTH 15.2 % (11.6-13.7); SODIUM SERUM 140 mmol/L (136-145); UREA NITROGEN, BLOOD 31 mg/dL (7-18)
[2022-05-20] MEDS: bisacodyL 10 MG SUPP RC SCH (09:00)
[2022-05-20] MEDS: VITAMIN D 400 IU TAB PO SCH (09:00)
[2022-05-20] MEDS ORDERED: SULF-58 PO (09:32)
[2022-05-20 09:45] VITALS: BP 158/84
[2022-05-20] MEDS: DOCUSATE 100 MG/10 ML UDC PO SCH (09:59)
[2022-05-20] MEDS: FERROUS SULFATE 325 MG TABEC PO SCH (10:01)
[2022-05-20] MEDS: lisinopriL 20 MG TAB PO SCH (10:01)
[2022-05-20] MEDS: CALCIUM CARB/VIT-D 500 MG/200 IU 1 TAB PO SCH (10:01)
[2022-05-20] MEDS: amLODIPine 5 MG TAB PO SCH (10:02)
[2022-05-20] MEDS: PANTOPRAZOLE 40 MG TABEC PO SCH (10:02)
[2022-05-20] MEDS: METOPROLOL SUCCINATE 50 MG TABER PO SCH (10:02)
[2022-05-20] MEDS: MULTIVITAMIN/MINERALS 1 TAB PO SCH (10:03)
[2022-05-20] MEDS: HALOPERIDOL 1 MG TAB PO SCH (10:03)
[2022-05-20] MEDS: SIMVASTATIN 40 MG TAB PO SCH (10:03)
[2022-05-20] MEDS: DONEPEZIL 10 MG TAB PO SCH (10:03)
[2022-05-20] MEDS: metFORMIN 500 MG TAB PO SCH (10:08)
--- NOTE | 2022-05-20 12:52 | NUR ---
PT TOOK AM MEDS CRUSHED IN APPLESAUCE. O2 SAT 97% ON ROOM AIR. D/Samantha MARTELL. DISCHARGE TO RETIREMENT ORDER PLACED.
--- NOTE | 2022-05-20 13:45 | NUR ---
PT DISCHARGED TO [facility] VIA BLS. VSS. SENT WITH PRESCRIPTION AND DISCHARGE INSTRUCTIONS
[2022-05-20 13:47] VITALS: BP 134/54
[2022-05-20] MEDS: BUDESONIDE 0.25 MG/2 ML NEBU INH SCH (14:33)
== END 2022-05-20 15:15 | disposition home or self-care (01) | DRG 871 ==
LOC: MED 13:50 → MMU 17:10 → MTU 17:48
PROVIDERS: ADMIT Preventive Medicine Preventive Medicine/Occupational Environmental Medicine; ATTEND Preventive Medicine Preventive Medicine/Occupational Environmental Medicine
PROC: XW033E5 Introduction of Remdesivir Anti-infective into Peripheral Vein, Percutaneous Approach, New Technology Group 5 (ICD-10-PCS; principal; 2022-05-15)
DX: A41.9 Sepsis, unspecified organism (principal); J12.82 Pneumonia due to coronavirus disease 2019; J96.01 Acute respiratory failure with hypoxia; U07.1 COVID-19; N39.0 Urinary tract infection, site not specified; E44.0 Moderate protein-calorie malnutrition; B96.20 Unspecified Escherichia coli [E. coli] as the cause of diseases classified elsewhere; B96.89 Other specified bacterial agents as the cause of diseases classified elsewhere; D64.9 Anemia, unspecified; E03.9 Hypothyroidism, unspecified; E11.9 Type 2 diabetes mellitus without complications; E78.5 Hyperlipidemia, unspecified; E88.09 Other disorders of plasma-protein metabolism, not elsewhere classified; Z68.30 Body mass index [BMI] 30.0-30.9, adult; G80.9 Cerebral palsy, unspecified; K21.9 Gastro-esophageal reflux disease without esophagitis; R13.10 Dysphagia, unspecified; J45.909 Unspecified asthma, uncomplicated; K59.00 Constipation, unspecified; I10 Essential (primary) hypertension; F29 Unspecified psychosis not due to a substance or known physiological condition; K44.9 Diaphragmatic hernia without obstruction or gangrene; G47.33 Obstructive sleep apnea (adult) (pediatric)
CPT/HCPCS: 36415; 71045; 80048; 80053; 81001; 83605; 84436; 84439; 84443; 84484; 85025; 85651; 86140; 87040; 87081; 87086; 93005; 94640; 96361; 96365; 97163-GP; 99285; J0456; J0696; J1100; J2060; J7060; J7613; J7626; J7644; Q0163